=== PATIENT | female | born 1985 | race Caucasian/White ===

== ENCOUNTER 2018-12-25 01:36 | Emergency (ER) | payer BC, OTHER ==
[~2018-12-25] VITALS: Ht 170.2 cm; Wt 72.2 kg
[~2018-12-25 01:36] MED LIST: IBUP-1542 PO; ONDA4TAB14 PO
[2018-12-25 01:46] VITALS: Ht 170.2 cm; Wt 72.2 kg
[2018-12-25] MEDS ORDERED: ONDANSETRON 4 MG INJ IV STA (03:59)
[2018-12-25] MEDS ORDERED: KETOROLAC 30 MG INJ IV STA (03:59)
[2018-12-25] MEDS ORDERED: FAMOTIDINE 20 MG TAB PO STA (03:59)
[2018-12-25 06:31] VITALS: BP 98/54; PULSE 54; RESP 18
== END 2018-12-25 06:32 | disposition home or self-care (01) ==
LOC: FTE 01:36
DX: R10.11 Right upper quadrant pain (principal)
CPT/HCPCS: 36415; 76705; 80053; 81001; 81025; 83690; 85025; 96374; 96375; 99285; J1885; J2405